=== PATIENT | male | born 1990 ===

== ENCOUNTER 2017-12-30 20:54 | Emergency (ER) | payer OTHER ==
[2017-12-30 21:10] VITALS: BP 144/90; PULSE 94; RESP 18; TEMP 98.1; O2SAT 94
== END 2017-12-30 22:08 | disposition home or self-care (01) | DRG 563 ==
LOC: ED 20:54
DX: S93.411A Sprain of calcaneofibular ligament of right ankle, initial encounter (principal); Y93.64 Activity, baseball
CPT/HCPCS: 73610; 99282; 99283

== ENCOUNTER 2018-04-02 09:46 | Emergency (ER) | payer OTHER ==
[2018-04-02 10:06] VITALS: BP 116/85; PULSE 68; RESP 16; TEMP 98.1; O2SAT 98
== END 2018-04-02 10:36 | disposition home or self-care (01) | DRG 603 ==
LOC: ED 09:46
DX: L08.9 Local infection of the skin and subcutaneous tissue, unspecified (principal)
CPT/HCPCS: 87070; 99282; 99283

== ENCOUNTER 2018-05-11 08:25 | Day surgery (SDC) | payer OTHER ==
[~2018-05-11 08:25] MED LIST: LIDOCAINE HCL 1% MPF 30 SOL ONE
[2018-05-11] MEDS ORDERED: ONDANSETRON HCL 4 MG/2 ML SOL ONE (08:29)
[2018-05-11] MEDS ORDERED: PROPOFOL 500 MG/50 ML EMU IV ONE (08:29)
[2018-05-11] MEDS ORDERED: FENTANYL 100MCG/2ML SOL ONE (08:29)
[2018-05-11] MEDS ORDERED: MIDAZOLAM 2 MG/2 ML SOL ONE (08:29)
[2018-05-11] MEDS ORDERED: LIDOCAINE HCL 1% MPF 30 SOL ONE (08:32)
[2018-05-11] MEDS ORDERED: CEFAZOLIN SODIUM 1 GM PDS ONE (08:32)
[2018-05-11 11:06] VITALS: BP 111/73; PULSE 55; RESP 20; TEMP 97.5; O2SAT 98
== END 2018-05-11 10:55 | disposition home or self-care (01) | DRG 74 ==
LOC: SURG 08:25
PROVIDERS: ATTEND Orthopaedic Surgery
DX: G56.01 Carpal tunnel syndrome, right upper limb (principal)
CPT/HCPCS: J0690; J2250; J2405; J3010; A6402; J2001; J2704